=== PATIENT | female | born 1970 | race Caucasian/White ===

== ENCOUNTER 2017-01-11 03:59 | Emergency (ER) | payer OTHER ==
[2017-01-11 04:10] VITALS: TEMP 97.9; BMI 23.2
--- NOTE | 2017-01-11 04:10 | PDOC ---
History of Present Illness - General Chief Complaint: Migraine Headache Stated Complaint: MIGRAINE Time Seen by Provider: 01/11/17 04:00 History Source: Patient Exam Limitations: No Limitations - History of Present Illness Initial Comments: 01/11/17 04:00 This is a 46 yo F with a longstanding history of migraines, treated with frovatryptan Pt presents to the ER c/o left frontal headache Pt states her symptoms began actually 10 days ago Since then, she has noted that her headache waxes and wanes but never really resolves Her current headache gradually worsened today since 10 am She took her abortive medication but this did not help Her headache is currently 10/10 It is located in the left medial orbital socket, left frontal region, and left parietal region (which is where she typically gets a migraine) Her headache is accompanied by photphobia and phonophobia She denies nausea or vomiting She does have several ill contacts including her and mother She denies nuchal rigidity She denies direct head trauma, though she states that she fell down a flight of stairs 2 weeks ago and she thinks she hit her head Of note, she also states she awoke with chest heaviness which she states is due to her headache PMH: migraines PSH: C section Meds: frovatryptan ALL: NKDA Social GENERAL/CONSTITUTIONAL: No: fever, chills, weakness, loss of appetite. HEAD, EYES, EARS, NOSE AND THROAT: No: change in vision, ear pain, discharge, sore throat, throat swelling. CARDIOVASCULAR: No: chest pain, lightheadedness, palpitations, syncope RESPIRATORY: No: cough, shortness of breath, wheezing, hemoptysis, stridor. GASTROINTESTINAL: No: nausea, vomiting, diarrhea, abdominal cramping, rectal bleeding, constipation. GENITOURINARY: No: dysuria, hematuria, frequency, urgency, flank pain. MUSCULOSKELETAL: No: back pain, neck pain, joint pain, muscle swelling or pain SKIN AND BREASTS: No: lesions, pallor, rash or easy bruising. NEUROLOGIC: Yes: headache No: vertigo, paresthesias, weakness ENDOCRINE: No: unexplained weight gain or loss HEMATOLOGIC/LYMPHATIC: No: anemia, easy bleeding, swelling nodes. GENERAL: The patient is in no acute distress, pt is uncomfortable HEAD: Normal with no signs of trauma. EYES: PERRLA 4mm to 2mm bilaterally, EOMI ENT: Ears normal, nares patent, oropharynx clear without exudates. Moist mucous membranes. NECK: Normal range of motion, supple, no nuchal rigidity LUNGS: Breath sounds equal, clear to auscultation bilaterally. No wheezes, and no crackles. HEART:Regular rate and rhythm, normal S1 and S2 without murmur, rub or gallop. ABDOMEN: Soft, nontender, normoactive bowel sounds. No guarding, no rebound. No masses palpable. EXTREMITIES: Normal range of motion, no edema. No clubbing or cyanosis. No erythema, or tenderness. NEUROLOGICAL: Cranial nerves II through XII grossly intact. Normal speech. No focal neurological deficits. MUSCULOSKELETAL: Back non-tender to palpation, no CVA tenderness SKIN: Warm, Dry, normal turgor, no rashes or lesions noted. 01/11/17 04:23 Past History - Past Medical History Allergies/Adverse Reactions: Allergies Allergy/AdvReac Type Severity Reaction Status Date / Time No Known Allergies Allergy Verified 01/11/17 04:00 Home Medications: Ambulatory Orders Acetaminophen/Caffeine/Butalb [Fioricet -] 1 tab PO Q6H #28 tablet MDD 4 Amoxicillin/Potassium Clav [Augmentin 875-125 Tablet] 1 each PO BID #14 tablet 01/11/17 Frovatriptan Succinate [Frova (Nf) -] 2.5 mg PO ONCE 01/11/17 Pseudoephedrine HCl [Sudafed] 60 mg PO Q6H #18 tablet 01/11/17 Heart Score/ECG Review - History History: Slightly suspicious - Electrocardiogram EKG: Normal - Age Age: 45-65 - Risk Factors Based on the list above the patient has:: No risk factors known - Troponin Troponin: </= normal limit - Score Heart Score - Total: 1 #1 ECG reviewed & interpreted by me at: 04:30 General ECG Interpretation: Sinus Rhythm, Normal Rate, Normal Intervals, No acute ischemic changes ED Treatment Course - LABORATORY CBC & Chemistry Diagram: 01/11/17 04:40 01/11/17 04:40 Medical Decision Making - Medical Decision Making 01/11/17 04:24 Pt presenting to the ER with a complaint of headache consistent with her history of migraines DD: Migraines, ICH (pt s/p trauma 2 weeks ago), Intracranial mass, PT also presenting with a complaint of chest pain: DD: pneumonia (pt has ill contacts), ACS, pleural effusion, pneumothorax, bronchitis, musculoskeletal pain 01/11/17 04:25 Will do : Labs including troponin CXR Head CT Will give: Tylenol IV Reglan Magnesium NS Can give toradol once CT negative 01/11/17 05:14 Laboratory Tests 01/11/17 04:40 Serum , Qual Negative 01/11/17 05:22 Pt re assessed States head is not painful anymore It is still present though 01/11/17 05:25 Laboratory Tests 01/11/17 01/11/17 01/11/17 04:40 04:40 04:40 WBC 7.1 Hgb 14.1 Hct 39.8 Plt Count 242 Neutrophils % 65.0 Lymphocytes % 24.9 Sodium 143 Potassium 4.0 Chloride 108 H Carbon Dioxide 26 Anion Gap 9 BUN 11 Creatinine 0.6 Random Glucose 102 Creatine Kinase 189 CK-MB (CK-2) 3.367 Troponin I < 0.02 01/11/17 05:53 PT states headache has greatly improved Currently 12/[address] 01/11/17 06:[address]: negative for acute intracranial pathology, (+) fluid in sphenoid sinus Will give: Toradol (no traumatic brain bleed) Will discharge on Augmentin, Sudafed (For sinusitis) and Fiorecet to be taken if needed for break through headache Pt asked to follow up with Neurology for further evaluation Pt also asked to follow up with primary care physician Clinical impression: migraine and sinusitis *DC/Admit/Observation/Transfer Diagnosis at time of Disposition: Migraine headache without aura Qualifiers: Status migrainosus presence: with status migrainosus Intractability: not intractable Qualified Code(s): G43.001 - Migraine without aura, not intractable , with status migrainosus Sinusitis Qualifiers: Sinusitis location: sphenoidal Chronicity: acute Recurrence: non-recurrent Qualified Code(s): J01.30 - Acute sphenoidal sinusitis, unspecified - Discharge Dispostion Disposition: HOME Condition at time of disposition: Stable Admit: No - Prescriptions Prescriptions: Amoxicillin/Potassium Clav [Augmentin 875-125 Tablet] 1 each PO BID #14 tablet Acetaminophen/Caffeine/Butalb [Fioricet -] 1 tab PO Q6H #28 tablet MDD 4 Pseudoephedrine HCl [Sudafed] 60 mg PO Q6H #18 tablet - Referrals Referrals: Jaime Campbell MD [Staff Physician] - - Patient Instructions Printed Discharge Instructions: DI for Migraine, Migraine Headaches ( Alternative Therapy), Migraine -- Adult Additional Instructions: Ms. Ruiz Thank you for coming in to the ER this morning Please review your CT results In addition to migraine, you may have sinusitis as well I have sent treatment for sinusitis (Augmentin, an antibiotic and Sudafed, a decongestant) to your pharmacy Please take as prescribed I have also order Fiorecet to be taken as needed for breakthrough headaches and only if your home medications do not work You should probably have a neurologist in the area (I have given you the name of one) and you should follow up with your primary care physician within 3-4 days Return to the ER for any other concerns or complaints - Post Discharge Activity Work/School Note: Back to Work
[2017-01-11] MEDS ORDERED: METOCLOPRAMIDE HCL INJECTION 10 MG/2 ML VIAL IVPB ONE (04:11)
[2017-01-11] MEDS ORDERED: KETOROLAC TROMETHAMINE 30 MG/1 ML VIAL IVPUSH ONE ×3 (04:11→06:13)
[2017-01-11] MEDS ORDERED: MAGNESIUM SULF 50% (8.12 MEQ/2 ML-1 GM VIAL) IVPB ONE (04:11)
[2017-01-11] MEDS ORDERED: SODIUM CHLORIDE 1,000 ML IV STA (04:13)
[2017-01-11] MEDS: SODIUM CHLORIDE 1,000 ML IV STA ×2 (04:24→05:45)
[2017-01-11] MEDS ORDERED: ACETAMINOPHEN 1000 MG/100 ML VIAL (NON FORMULARY) IVPB ONE (04:25)
[2017-01-11] MEDS ORDERED: ACETAMINOPHEN INJECTION 100 ML IVPB ONE (04:27)
[2017-01-11 04:56] LABS: BASOPHIL 0.7 % (0-2.0); EOSINOPHIL 2.2 % (0-4.5); MCH 33.7 pg (25.7-33.7); MCHC 35.5 g/dl (32.0-36.0); MEAN CELL VOLUME 94.8 fl (80-96); MEAN PLT VOLUME 7.6 fl (7.5-11.1); PLATELET COUNT 242 K/MM3 (134-434); RDW 12.2 % (11.6-15.6); WHITE BLOOD COUNT 7.1 K/mm3 (4.0-10.0)
[2017-01-11 05:18] LABS: ALBUMIN 3.7 g/dl (3.4-5.0); ANION GAP 9 (8-16); BILIRUBIN,TOTAL 0.6 mg/dL (0.2-1.0); CALCIUM 8.7 mg/dL (8.5-10.1); CO2 26 mmol/L (21-32); COCKROFT - GAULT 134.4615; CREATININE 0.6 mg/dL (0.55-1.02); GLUCOSE,RANDOM 102 mg/dL (74-106); SGOT/AST 18 U/L (15-37); SGPT/ALT 27 U/L (12-78); TOT PROT 6.8 g/dl (6.4-8.2)
[2017-01-11 05:21] LABS: ALK PHOS 125 U/L (45-117)
[2017-01-11 05:22] LABS: TROPONIN I < 0.02 ng/ml (0.00-0.05)
[2017-01-11] MEDS ORDERED: KETOROLAC TROMETHAMINE 30 MG/1 ML VIAL ONE (06:14)
[2017-01-11 07:21] VITALS: BP 105/49; PULSE 66
--- NOTE | 2017-01-11 12:50 | EKG ---
Test Reason : Blood Pressure : / mmHG Vent. Rate : 077 BPM Atrial Rate : 077 BPM P-R Int : 166 ms QRS Dur : 082 ms QT Int : 390 ms P-R-T Axes : 072 071 061 degrees QTc Int : 441 ms NORMAL SINUS RHYTHM NORMAL ECG NO PREVIOUS ECGS AVAILABLE Confirmed by ISHA GORDON MD ([id number]) on 01/11/2017 12:49:36 PM Referred By: ANEL MEDLEY Confirmed By:ISHA GORDON MD
== END 2017-01-11 07:28 | disposition home or self-care (01) ==
LOC: FER 03:59
PROC: 3E033NZ Introduction of Analgesics, Hypnotics, Sedatives into Peripheral Vein, Percutaneous Approach (ICD-10-PCS; principal; 2017-01-11)
PROC: 3E0333Z Introduction of Anti-inflammatory into Peripheral Vein, Percutaneous Approach (ICD-10-PCS; 2017-01-11)
PROC: 3E033GC Introduction of Other Therapeutic Substance into Peripheral Vein, Percutaneous Approach (ICD-10-PCS; 2017-01-11)
PROC: 3E0337Z Introduction of Electrolytic and Water Balance Substance into Peripheral Vein, Percutaneous Approach (ICD-10-PCS; 2017-01-11)
DX: G43.001 Migraine without aura, not intractable, with status migrainosus (principal); J01.30 Acute sphenoidal sinusitis, unspecified
CPT/HCPCS: 36415; 70450-TC; 71010-TC; 80053; 82550; 82553; 84484; 84703; 85025; 93005; 99283-25